=== PATIENT | female | born 1980 | race African-American/Black ===

== ENCOUNTER 2023-05-12 09:27 | Outpatient (CLI) | payer MEDICARE, MEDICAID, SELFPAY ==
[2023-05-12 19:08] LABS: Beta HCG Quantitative < 2.39 mIU/ML
== END 2023-05-12 09:28 | disposition home or self-care (01) ==
PROVIDERS: PCP Nurse Practitioner Adult Health; Visit Provider Nurse Practitioner Adult Health
DX: N91.2 Amenorrhea, unspecified (principal); Z32.00 Encounter for pregnancy test, result unknown
CPT/HCPCS: 36415; 84702

== ENCOUNTER 2023-07-13 09:33 | Outpatient (CLI) | payer MEDICARE, MEDICAID, SELFPAY ==
[2023-07-13 19:00] LABS: Hematocrit 37.5 % (37.0-47.0); Hemoglobin 11.4 g/dL (12.0-15.0); Mean Corpuscular HGB Conc 30.4 g/dl (32-36); Mean Corpuscular Hemoglobin 25.2 pg (26-34); Mean Corpuscular Volume 82.8 fl (80-100); Mean Platelet Volume 10.1 fl (7.4-10.4); Platelet Count Result 322 k/mm3 (150-375); Red Blood Count 4.53 M/mm3 (4.2-5.4); Red Cell Distribution Width 16.5 % (11.5-14.5); White Blood Count 16.4 K/mm3 (4.5-10.0)
[2023-07-13 19:16] LABS: Alanine Aminotransferase 21 U/L (6-35); Albumin Level 4.3 g/dL (3.5-5.1); Alkaline Phosphatase 142 U/L (38-126); Anion Gap 8 mmol/L (8-16); Aspartate Amino Transferase 65 U/L (14-36); Bilirubin,Total 0.4 mg/dL (0.2-1.3); Blood Urea Nitrogen 8 mg/dL (7-17); Calcium 9.2 mg/dL (8.4-10.2); Carbon Dioxide 28 mmol/L (22-30); Chloride 103 mmol/L (98-107); Cholesterol 145 mg/dL (0-200); Estimated Glomerular Filt Rate > 60; Glucose 91 mg/dL (65-110); HDL Direct 31 mg/dL; Sodium 139 mmol/L (137-145); Triglycerides 77 mg/dL (<150)
[2023-07-13 19:27] LABS: LDL Cholesterol Direct 85 mg/dL
[2023-07-13 19:44] LABS: Thyroid Stimulating Hormone 0.033 uIU/mL (0.465-4.680)
[2023-07-13 20:50] LABS: Hemoglobin A1C 5.7 % (<5.7)
[2023-07-14 10:49] LABS: Rapid Plasma Reagin Non-Reactive (NonReactive)
== END 2023-07-13 09:34 | disposition home or self-care (01) ==
PROVIDERS: PCP Nurse Practitioner Adult Health; Visit Provider Nurse Practitioner Adult Health
DX: Z72.51 High risk heterosexual behavior (principal); E66.9 Obesity, unspecified; Z79.899 Other long term (current) drug therapy
CPT/HCPCS: 36415; 80053; 80061; 83036; 84443; 85027; 86592

== ENCOUNTER 2023-11-02 14:06 | Outpatient (CLI) | payer MEDICARE, MEDICAID, SELFPAY ==
[2023-11-02 20:17] LABS: Alanine Aminotransferase 17 U/L (6-35); Albumin Level 3.8 g/dL (3.5-5.1); Alkaline Phosphatase 109 U/L (38-126); Anion Gap 5 mmol/L (8-16); Aspartate Amino Transferase 65 U/L (14-36); Bilirubin,Total 0.3 mg/dL (0.2-1.3); Blood Urea Nitrogen 6 mg/dL (7-17); Carbon Dioxide 26 mmol/L (22-30); Chloride 108 mmol/L (98-107); Cholesterol 150 mg/dL (0-200); Estimated Glomerular Filt Rate > 60; Glucose 87 mg/dL (65-110); HDL Direct 28 mg/dL; Potassium 4.1 mmol/L (3.4-5.0); Sodium 139 mmol/L (137-145); Triglycerides 87 mg/dL (<150)
[2023-11-02 20:26] LABS: Mean Corpuscular HGB Conc 31.4 g/dl (32-36); Mean Corpuscular Hemoglobin 25.2 pg (26-34); Mean Corpuscular Volume 80.3 fl (80-100); Mean Platelet Volume 9.9 fl (7.4-10.4); Platelet Count Result 321 k/mm3 (150-375); Red Blood Count 4.36 M/mm3 (4.2-5.4); Red Cell Distribution Width 16.3 % (11.5-14.5); White Blood Count 12.3 K/mm3 (4.5-10.0)
[2023-11-02 20:28] LABS: LDL Cholesterol Direct 99 mg/dL
[2023-11-02 20:48] LABS: Thyroid Stimulating Hormone 0.418 uIU/mL (0.465-4.680)
== END 2023-11-02 14:07 | disposition home or self-care (01) ==
PROVIDERS: PCP Nurse Practitioner Adult Health; Visit Provider Nurse Practitioner Adult Health
DX: R22.9 Localized swelling, mass and lump, unspecified (principal); Z13.9 Encounter for screening, unspecified; E66.9 Obesity, unspecified; N91.2 Amenorrhea, unspecified
CPT/HCPCS: 36415; 80053; 80061; 84443; 85027

== ENCOUNTER 2024-04-11 02:24 | Day surgery (SDC) | payer MEDICARE, MEDICAID, SELFPAY ==
[2024-03-29 08:58] VITALS: BMI 32.5
[2024-04-11] MEDS: LACTATED RINGERS 1,000 ML 150 ML IV CONT (10:37)
[2024-04-11 10:40] VITALS: BP 112/60; PULSE 73; RESP 18; TEMP 36.1; O2SAT 99
--- NOTE | 2024-04-11 10:48 | WPDANESEPPF ---
Anes - Initial Pre Proc Eval Procedure: Operation Date: 04/11/24 11:30 Proposed Procedures p Esophagogastroduodenoscopy - Cornelio Morelos MD Date/Time: 04/11/24 10:48 Surgeon: Cornelio Morelos MD Pre Op Diagnosis: GERD without esophagitis, epigastric pain Patient Data Age: 43 Gender: F Height: 1.63 m Weight: 86.7 kg Last Vital Signs Temp 36.1 C L 04/11/24 10:40 Pulse 73 04/11/24 10:40 Resp 18 04/11/24 10:40 BP 112/60 04/11/24 10:40 Pulse Ox 99 04/11/24 10:40 O2 Del Method Room Air 04/11/24 10:40 Allergies Allergy/AdvReac Type Severity Reaction Status Date / Time amoxicillin Allergy Unknown Hives Verified 04/11/24 10:39 Home Medications Medication Instructions Recorded Confirmed Type norethindrone (contraceptive) 0.35 0.35 mg PO DAILY #84 tabs 07/27/23 03/29/24 Rx mg tablet (Zuleyma) nicotine (polacrilex) 4 mg gum 4 mg buccal Q1H PRN nicotine 08/10/23 03/29/24 Rx (Nicorette) cravings #100 ea hydroxyzine pamoate 50 mg capsule 50 mg PO .qd PRN itching #90 caps 10/14/23 03/29/24 Rx ferrous sulfate 325 mg (65 mg 325 mg PO DAILY #90 tabs 11/11/23 03/29/24 Rx iron) tablet albuterol sulfate 90 mcg/actuation 1 puff inhalation Q4H PRN 12/23/23 03/29/24 Rx aerosol inhaler (Ventolin HFA) bronchospasm #8.5 grams citalopram 40 mg tablet 40 mg PO DAILY #30 tabs 01/10/24 03/29/24 Rx gabapentin 300 mg capsule 300 mg PO Q6H #120 caps 01/10/24 04/11/24 Rx ropinirole 0.5 mg tablet See Rx Instructions .Route 01/17/24 03/29/24 Rx .COMPLEX #180 tabs esomeprazole magnesium 40 mg 40 mg PO BID #90 caps 01/20/24 03/29/24 Rx capsule,delayed release (Nexium) Patient hx anesthesia problems: none Family hx anesthesia problems: none Results Review: All pre-operative results and documents have been reviewed as part of the pre-operative evaluation. [facility] Past Medical History Medical History Anxiety Asthma Chronic GERD Encounter for well woman exam Seizure Surgical History Surgical History H/O colposcopy with cervical biopsy History of appendectomy Family History Family History Mother Hypertension Sibling History of ETOH abuse Grandparent Diabetes mellitus Heart disease Cancer Social History Social History Years smoked: 15 Smoking status: Current every day smoker Tobacco type: cigarettes Alcohol intake: never Substance use: never Lack of Transportation: No Lack of Food: Sometimes True Current Housing: I Have Housing Concerned About Future Housing: No Difficulty Paying Gas/Electric Bills: YES Difficulty Paying for Meds: YES Currently Unemployed: No Education: High School Diploma/GED Difficulty w/ Childcare or Family Care: No Living arrangements: with family Additional occupation/education comments: disabled Legally Blind Gender identity (if verbalized by the patient): Female Spiritual care concerns: No Agree to blood products: No Anes - Eval Final PreProcedure Day of Procedure 04/11/24 10:48 Patient weight: obese Heart: regular rate and rhythm Lungs: clear to auscultation Airway: Mallampati scale class II Neurological: alert and oriented Last oral intake: >/= 8 hours ASA classification: III Emergent: no Anesthetic plan: proceed Anesthesia type and monitoring: general GIVS and standard monitoring Results Review: All pre-operative results and documents have been reviewed as part of the pre-operative evaluation. Informed Consent: The patient's anesthetic plan and its attendant risks and benefits were discussed with the patient/family/POA. Questions were solicited and answers provided to the satisfaction of the patient/family/POA.
--- NOTE | 2024-04-11 11:01 | PM.HPGS ---
History of Present Illness History of Present Illness Consent: Risks, benefits, and alternatives have been discussed and questions answered. Patient agrees to proceed with procedure. Chief complaint: GERD without esophagitis, epigastric pain Narrative: Dolores Cheung is a 43 year old female here for first EGD, intermittent epigastric pain, using now esomeprazole. Imaging showed chronic pancreatitis (former alcohol user) Review of Systems Review of Systems: All systems reviewed & are unremarkable except as noted in HPI and below PMFSH Past Medical History Medical History Anxiety Asthma Chronic GERD Encounter for well woman exam Seizure Surgical History Surgical History H/O colposcopy with cervical biopsy History of appendectomy Family History Family History Mother Hypertension Sibling History of ETOH abuse Grandparent Diabetes mellitus Heart disease Cancer Social History Social History Years smoked: 15 Smoking status: Current every day smoker Tobacco type: cigarettes Alcohol intake: never Substance use: never Lack of Transportation: No Lack of Food: Sometimes True Current Housing: I Have Housing Concerned About Future Housing: No Difficulty Paying Gas/Electric Bills: YES Difficulty Paying for Meds: YES Currently Unemployed: No Education: High School Diploma/GED Difficulty w/ Childcare or Family Care: No Living arrangements: with family Additional occupation/education comments: disabled Legally Blind Gender identity (if verbalized by the patient): Female Spiritual care concerns: No Agree to blood products: No Meds Home Medications and Allergies Home Medications Medication Instructions Recorded Confirmed Type norethindrone (contraceptive) 0.35 0.35 mg PO DAILY #84 tabs 07/27/23 03/29/24 Rx mg tablet (Zuleyma) nicotine (polacrilex) 4 mg gum 4 mg buccal Q1H PRN nicotine 08/10/23 03/29/24 Rx (Nicorette) cravings #100 ea hydroxyzine pamoate 50 mg capsule 50 mg PO .qd PRN itching #90 caps 10/14/23 03/29/24 Rx ferrous sulfate 325 mg (65 mg 325 mg PO DAILY #90 tabs 11/11/23 03/29/24 Rx iron) tablet albuterol sulfate 90 mcg/actuation 1 puff inhalation Q4H PRN 12/23/23 03/29/24 Rx aerosol inhaler (Ventolin HFA) bronchospasm #8.5 grams citalopram 40 mg tablet 40 mg PO DAILY #30 tabs 01/10/24 03/29/24 Rx gabapentin 300 mg capsule 300 mg PO Q6H #120 caps 01/10/24 04/11/24 Rx ropinirole 0.5 mg tablet See Rx Instructions .Route 01/17/24 03/29/24 Rx .COMPLEX #180 tabs esomeprazole magnesium 40 mg 40 mg PO BID #90 caps 01/20/24 03/29/24 Rx capsule,delayed release (Nexium) Allergies Allergy/AdvReac Type Severity Reaction Status Date / Time amoxicillin Allergy Unknown Hives Verified 04/11/24 10:39 Vital Signs Vital Signs - 24 hr 04/11/24 10:40 Temperature 97 F L Pulse Rate 73 Respiratory Rate 18 Blood Pressure 112/60 Pulse Oximetry 99 Oxygen Delivery Room Air Exam Const: General: comfortable and no acute distress HENMT: Face/Nose/Sinus: Normal nares present Eyes: General: appearance normal, both eyes and all related structures Neck: Neck: no JVD Resp: Auscultation: clear to auscultation bilaterally Cardio: Rate: regular rate Rhythm: regular rhythm GI: Inspection: non-distended GI Palp: Yes Soft to palpation Skin: General skin exam: normal color Neuro: General: gait normal Speech: normal speech Extrem: General: normal to inspection Psych: Mental Status: mental status grossly normal Assessment and Plan Assessment and plan (1) Epigastric pain: Code(s): R10.13 - Epigastric pain Status: Acute (2) GERD (gastroesophageal reflux disease): Code(s): K21.9 - Gastro-esophageal reflux di
[2024-04-11 11:15] VITALS: BP 109/65; PULSE 77; RESP 13; O2SAT 100
[2024-04-11 11:25] VITALS: BP 107/72; PULSE 83; RESP 16; O2SAT 98
[2024-04-11 11:35] VITALS: BP 116/73; PULSE 75; RESP 15; O2SAT 96
== END 2024-04-11 12:27 | disposition home or self-care (01) ==
PROVIDERS: PCP Family Medicine; Referring Provider Nurse Practitioner; Visit Provider Internal Medicine Gastroenterology
PROC: 0DJ08ZZ Inspection of Upper Intestinal Tract, Via Natural or Artificial Opening Endoscopic (ICD-10-PCS; CPT 43235; principal; 2024-04-11 11:30)
DX: K21.9 Gastro-esophageal reflux disease without esophagitis (principal); J45.909 Unspecified asthma, uncomplicated; F41.9 Anxiety disorder, unspecified; Z79.51 Long term (current) use of inhaled steroids; F17.210 Nicotine dependence, cigarettes, uncomplicated; E66.9 Obesity, unspecified; Z68.32 Body mass index [BMI] 32.0-32.9, adult
CPT/HCPCS: 43239; 88305; J7120

== ENCOUNTER 2024-06-22 09:00 | Outpatient (RCR) | payer MEDICARE, MEDICAID, SELFPAY ==
--- NOTE | 2024-05-23 08:56 | OPREHPOC ---
Outpatient Therapy Plan of Care This is a Multidisciplinary Plan of Care that may contain components documented by all disciplines (PT, OT, and ST.) PT Problem 1 PT Problem #1 Knowledge Deficit PT Goal 1 Goal / Goal Update *indep with HEP Target Visit 10 PT Problem 2 PT Problem #2 Impaired Strength PT Goal 1 Goal / Goal Update increase strength of R and L LE, to improve standing balance and gait skills: 1* supine SLR x 20 reps 2* side lying hip abduction to 10' x 20 reps 3* sit/stand transfer without legs touching the chair Target Visit 10 PT Problem 3 PT Problem #3 Impaired Functional Mobility PT Goal 1 Goal / Goal Update improve balance and mobility skills: 1* Etienne balance score of 48/56 2* 5 reps sit/stand time of 22 seconds 3* static stand without UE support for 90 seconds with good stability 4* up/down 4 steps with one hand railing, modified indep Target Visit 10
--- NOTE | 2024-05-23 08:56 | PTOPEVAL1 ---
Assessment and note entered by Sandhya Ordonez PT Evaluation Information Assessment Status Evaluation ICD-10 Condition Codes (PT) Difficulty Walking R26.2,R26.9 Other ICD-10 Condition Codes ( R29.898--s/s of musculoskeletal system PT) Subjective Information weakness, have not had any falls, did sprain R ankle recently; feels her legs and ankles are weak; stated she is getting Speech Therapy at another facility; Activity: live with 17 yr old son, have caregiver to assist with home tasks; requires assist with bathing and dressing; have tub with seat and grab bars- caregiver assist in/out tub; have 4 steps to enter home, without railing- have to have help on them; blind- use walking stick does stretching exercises for her body, lying in bed; not any strengthening Goal: confidence with walking, she is scared of falling and breaking her ankle; Reported Pain Level Pain Score 8: Self Report Additional Pain Score Comments history of chronic back pain; R shoulder pain and ankles weak Assessment PT Clinical Summary Dolores has the diagnosis of other musculoskeletal. She reports weakness of legs and problems with walking and stairs. She has not had any falls, but is not confident with her walking and scared of falling. She is blind and uses a walking stick for mobility. With the evaluation: Etienne balance score of 35/56; 5 reps sit/stand time of 32 seconds; weakness of both legs, R weaker than L with recent R ankle sprain; she is not doing any strengthening exercises at home. Static standing time is about 32 seconds and wobbly--reaching out for something to hold onto. Skilled PT services are indicated for LE strengthening, gait and balance retraining with education for HEP. Plan of Care Interventions Gait Training,Neuro Re-education,Patient/Caregiver Education,Therapeutic Activities,Therapeutic Exercise PT Services Indicated Yes Treatment Frequency and 2x/wk for 10 visits Duration These treatments will address the objective and functional deficits as defined above. The patient will be advanced safely and appropriately in order for the patient to progress towards his/her prior level of function. Additional exercises will be introduced and as well as a comprehensive home exercise program upon discharge, if needed, ?to ensure carryover of functional gains achieved in the clinic. This treatment plan has been reviewed and agreement upon by the patient.
--- NOTE | 2024-05-30 11:03 | PCPTNOTE ---
Pt canceled appt. this morning and rescheduled.
--- NOTE | 2024-06-08 11:58 | PCPTNOTE ---
pt cancelled due to no ride.
--- NOTE | 2024-07-27 17:23 | PCPTNOTE ---
Patient was a No Show/No Call for today's appointment.
--- NOTE | 2024-08-22 11:46 | PCPTNOTE ---
This treatment is being continued on visit number [id number] Please see documentation on both accounts to view progress. Completed interventions, outcomes, and problems have been marked as Inactive to facilitate the copying of the Care plan routine for recurring accounts.
== END 2024-08-21 23:59 | disposition home or self-care (01) ==
LOC: ANHPT 09:00
PROVIDERS: PCP Family Medicine; Visit Provider Family Medicine
DX: R29.898 Other symptoms and signs involving the musculoskeletal system (principal)
CPT/HCPCS: 97110; 97161; 97530

== ENCOUNTER 2024-11-30 10:00 | Outpatient (RCR) | payer MEDICARE, MEDICAID, SELFPAY ==
--- NOTE | 2024-11-01 11:52 | OPREHPOC ---
Outpatient Therapy Plan of Care This is a Multidisciplinary Plan of Care that may contain components documented by all disciplines (PT, OT, and ST.) PT Problem 1 PT Problem #1 Knowledge Deficit PT Goal 1 Goal / Goal Update *indep with HEP Target Visit 8 PT Problem 2 PT Problem #2 Pain PT Goal 1 Goal / Goal Update * pt report pain rating at worst of 4/10 to increase standing and walking tolerance Target Visit 8 PT Problem 3 PT Problem #3 Impaired Strength PT Goal 1 Goal / Goal Update increase strength of R ankle, to improve mobility skill, pt able to perform 1* single leg standing x 10 seconds without UE support 2* standing bilateral PF x 10 reps with out UE support 3* sitting ankle circles x 20 reps with good control Target Visit 8
--- NOTE | 2024-11-01 11:52 | PTOPEVAL1 ---
Assessment and note entered by Sandhya Ordonez, PT Evaluation Information Assessment Status Evaluation ICD-10 Condition Codes (PT) Pain in right ankle and joints of right foot M25. 571 Onset about 1 year Subjective Information about 1 year ago, started having pain in R ankle, moving around house ankle just started hurting; had x ray of ankle at another facility- per pt: no fracture, dr said slight sprain of ankle Activity: decreased community outings due to ankle pain; problems with 4 stairs into home, may have to move to apartment with no stairs Reported Pain Level Pain Score Self Report Additional Pain Score Comments pain range in the past week: 5-7 /10 numbness and ache in ankle, sore increase pain: stairs, standing/walking 4-5 minutes decrease pain: sit, elevate foot,ice Assessment PT Clinical Summary Dolores has the diagnosis of R ankle pain. She reports issues for about the past year with ankle pain, without trauma or fall. Her history includes neuropathy in both LE's and legally blind . Caregiver assists her with transportation and home tasks. Pain is increased with standing and walking about 4-5 minutes and stairs. Self assessment with LE functional score of 80% limitation in activity level. With the evaluation: pain is over lateral malleoli, decreased PF motion with pain increase; slight decrease in inversion and eversion motions decreased strength of R ankle in all motions. Skilled PT services are indicated for modalities to decrease pain, therapeutic exercises to increase R ankle ROM and strength, with education for HEP. Plan of Care Interventions Electrical Stimulation,Hot Pack/Cold Pack,Manual Therapy,Neuro Re-education,Patient/Caregiver Education,Therapeutic Activities,Therapeutic Exercise,Other Other Interventions fluidotherapy, taping PT Services Indicated Yes Treatment Frequency and 1x/wk for 8 visits Duration These treatments will address the objective and functional deficits as defined above. The patient will be advanced safely and appropriately in order for the patient to progress towards his/her prior level of function. Additional exercises will be introduced and as well as a comprehensive home exercise program upon discharge, if needed, ?to ensure carryover of functional gains achieved in the clinic. This treatment plan has been reviewed and agreement upon by the patient.
--- NOTE | 2024-11-24 09:30 | PCPTNOTE ---
Canceled pt reported a visit to ER and not up to PT today. Note pt was not admitted. AKS
--- NOTE | 2024-11-30 10:41 | PTOPDC ---
Assessment and note entered by Sandhya Ordonez, PT Assessment Status Discharge ICD-10 Condition Codes (PT) Pain in right ankle and joints of right foot M25. 571 Onset about 1 year Subjective Information ankle feels about the same; still have problems with neuropathy pain and walking; feels like I should not be walking, like I weigh 400-500# with legs like concrete; inflamed above knees and legs swollen; went to ER and legs were checked for blood clots, did not have any; have been to ER 3x - to take meds from regular dr and have break through med to use when need; it takes a lot of work and motivation for me to walk and get around. Reported Pain Level Pain Score Self Report Additional Pain Score Comments pain range in the past week: 6-8/10, pain, swelling and inflamed in ankle-- medial and lateral malleoli report able to be up on feet/standing/walking 15 minutes at the most Assessment PT Clinical Summary Dolores has received 4 PT sessions from Nov 01 to today. She called and canceled 1 appointment. Compared to the initial evaluation: pain range from 5-7/10 to 6-8/10; self assessment with LE functional scale rating from 80 to 85% limitation in activity level; R ankle active ROM is same, with previous reported pain increase with PF and now inversion and DF painful; also reports pain in whole R leg; strength of R ankle is the same; into dept, ambulation of 150' with good gait pattern and reports of more pain in ankle; education for HEP and mobility. The goals were partially met. Discharge PT services. She is to continue to perform HEP and walking as tolerated to increase strength. Plan of Care PT Services Indicated No
== END 2024-11-30 11:56 | disposition home or self-care (01) ==
LOC: ANHPT 10:00
PROVIDERS: PCP Family Medicine; Visit Provider Family Medicine
DX: M25.571 Pain in right ankle and joints of right foot (principal)
CPT/HCPCS: 97110; 97140; 97161; 97530

== ENCOUNTER 2024-12-22 10:49 | Outpatient (RCR) | payer MEDICARE, MEDICAID, SELFPAY ==
--- NOTE | 2024-12-22 12:47 | OTOPEVDC ---
Assessment and note entered by Ruben Biggs, OTR/L, CHT Thank you for referring Dolores Cheung to [facility].? An evaluation has been completed. No further treatment is needed. Seating/Mobility Evaluation 12/22/24 Assessment Status Evaluation Subjective Information Patient referred to our clinic for seating/ mobility evaluation. Referring diagnoses include: peripheral neuropathy, LE weakness, restless leg syndrome. She also has COPD and shortness of breath with activity. Patient's goals for a mobility device include being able to get around with less pain. She presents today with her caregiver. Please refer to scanned 12 page seating/mobility evaluation form for details. Reported Pain Level Additional Pain Score Comments bilateral feet/ankles 10/10, chronic and constant, on a good day 8/10; right arm/shoulder intermittent pain, 6/10 today; chronic GERD with back/chest/abdomen pain 0/10 right now, gets up to 10/10 on a bad day happens 3-4x/week; low back pain 5/10 sitting and w/ activity 7/10 Assessment OT Clinical Summary Dolores is unable to safely and independently ambulate household distances due to her current impairments of weakness and pain. She demonstrates functional mobility limitations that impairs her ability to safely participate in mobility-related ADLs. These limitations cannot by sufficiently resolved by the use of an appropriately fitted cane, walker, or standard manual wheelchair. A custom K5 light weight manual wheelchair is necessary because of her UE pain, weakness, and shortness of breath with activity and propulsion of a standard manual wheelchair. An adjustable axle is necessary for functional reach of the wheels. She demonstrates compromised endurance and UE pain, which requires lightest weight frame available. Patient also has LE pain and swelling, which will greatly benefit from use of elevated leg rests. Patient has demonstrated sufficient physical and mental capabilities needed to safety propel an optimally configured light weight wheelchair. Patient is willing and capable to use recommended equipment. Plan of Care OT Services Indicated No
== END 2024-12-22 13:27 | disposition home or self-care (01) ==
LOC: ANHOT 10:49
PROVIDERS: Visit Provider Family Medicine
DX: G62.9 Polyneuropathy, unspecified (principal); R29.898 Other symptoms and signs involving the musculoskeletal system; G25.81 Restless legs syndrome
CPT/HCPCS: 97167